=== PATIENT | female | born 2000 | race Caucasian/White ===

== ENCOUNTER 2019-07-26 14:30 | Outpatient (CLI) | payer BC, OTHER ==
[2019-07-26 15:46] LABS: Appearance,Urine Clear (Clear); Bacteria,Urine Rare /hpf; Bilirubin,Urine Negative (Negative); Blood,Urine Negative (Negative); Color,Urine Yellow; Glucose,Urine (UA) Negative (Negative); Hyaline Casts,Urine 1 /lpf (0-2); Ketones,Urine Negative (Negative); Leukocyte Esterase,Urine Large (Negative); Mucus,Urine Occasional /hpf; Nitrite,Urine Negative (Negative); PH, Urine 6.5 (5.0-8.0); Protein,Urine Negative (Negative); RBC,Urine 3 /hpf (0-5); Specific Gravity,Urine 1.016 (1.001-1.035); Squamous Epithelial Cell,Urine 6 /hpf (0-4); Urobilinogen,Urine <2.0 mg/dL (<2.0); WBC,Urine 2 /hpf (0-5)
[2019-07-26 16:07] VITALS: BP 127/62; PULSE 86; RESP 18; TEMP 97
--- NOTE | 2019-07-26 17:03 | US ---
EXAMINATION TYPE: US OB limited DATE OF EXAM: 07/26/2019 COMPARISON: NONE CLINICAL HISTORY: Rule out placenta previa. Vaginal spotting yesterday; decreased movement; G1P 0 EXAM PERFORMED: Transabdominal (TA) GESTATIONAL AGE / DATING Physician Established: (22 weeks/6 days) EDC: 11/23/2019 No growth performed on today?s study per ordering physician SURVEY PLACENTA: Posterior PREVIA: No Previa; 2.2cm distance from placental end to internal OS at exam's beginning Ultrasound evidence of abruption? no PASHA: 12.7 cm Normal Ultrasound evidence of premature rupture of membranes? no CERVICAL LENGTH (transabdominal: norm > 3.0cm): 3.2 cm PRESENTATION: cephalic HEART RATE: 147 bpm RHYTHM: Normal Tech findings provided to ELAINE Payton, at exam's end. JBjorn IMPRESSION: Normal amniotic fluid. No evidence of placenta previa. No evidence of placenta abruption .
--- NOTE | 2019-07-26 23:09 | P.MSEPDOC ---
Presenting Problems - Arrival Data Date of Arrival on Unit: 07/26/19 Time of Arrival on Unit: 14:08 Mode of Transport: Portable - Complaint OB-Reason for Admission/Chief Complaint: Vaginal Bleeding Comment: Pt states she noticed blood when urinating at around 8 AM today in the. toilet. Was unable to describe actual amount of blood. Pt denies any current bleeding at this time. Medical History - Information : 1 Para: 0 Term: 0 : 0 Abortions: Spontaneous or Elective: 0 Number of Living Children: 0 - Gestational Age Gestational Age by ESTUARDO (wks/days): 22 Weeks and 6 Days Review of Systems - Review of Systems Constitutional: No problems Breast: No problems ENT: No problems Cardiovascular: No problems Respiratory: No problems Gastrointestinal: No problems Genitourinary: No problems Musculoskeletal: No problems Neurological: No problems Skin: No problems Vital Signs - Temperature Temperature: 97.0 F Temperature Source: Temporal Artery Scan - Pulse Brachial Pulse Rate: 86 Pulse Assessment Method: Pulse Oximetry - Respirations Respiratory Rate: 18 Oxygen Delivery Method: Room Air O2 Sat by Pulse Oximetry: 98 - Blood Pressure Right Arm Blood Pressure: 127/62 Blood Pressure Mean: 83 Blood Pressure Source: Automatic Cuff Medical Screen Scoring (Pre) - Cervical Exam Dilation: Exam Deferred Effacement: Exam Deferred Membranes: Intact - Uterine Contractions Frequency: N/A Duration: N/A Intensity: N/A - Maternal Vital Signs Maternal Temperature: N/A Maternal Blood Pressure: N/A Signs of Preeclampsia: N/A Maternal Respirations: N/A - Maternal Trauma Maternal Trauma: N/A - Assessment - Baby A Baseline FHR: 147 Heart Rate - NICHD Category: Category I (Normal) = 0 Position: N/A Station: N/A - Total Score - Baby A Total Score - Baby A: 0 - Total Score - Baby B Total Score - Baby B: 0 - Total Score - Baby C Total Score - Baby C: 0 - Level of Risk - Baby A Level of Risk - Baby A: Low (0-5) - Level of Risk - Baby B Level of Risk - Baby B: Low (0-5) - Level of Risk - Baby C Level of Risk - Baby C: Low (0-5) Physician Notification (Pre) - Physician Notified Physician Notified Date: 07/26/19 Physician Notified Time: 15:08 Physician/Practitioner Notifed:: Dr. Raad Bartlett Order Received: Yes (Obtain ultrasound and UA) - Notification Comment Comment: Notified physician that pt states she noticed blood when urinating at around 8 AM today in the toilet. Was unable to describe actual amount of blood. Pt denies any current bleeding at this time. Physician Notification (Post) - Physician Notified Physician Notified Date: 07/26/19 Physician Notified Time: 16:00 Physician/Practitioner Notified:: Dr. Raad Bartlett Order Received: Yes - Notification Comment Comment: Notified of ultrasound results and UA results. Orders received to D/C home if pt has closed cervix. Disposition - Disposition OB Disposition: Discharge to home Discharge Date: 07/26/19 Discharge Time: 16:08 I agree with the RN Medical Screening Exam: Yes Risk & Benefit of care provided described in d/c instruction: Yes Diagnosis: SPOTTING COMPLICATING , SECOND TRIMESTER (Patient presents for evaluation of spotting second trimester. care is not with a physician associated with this hospital. Complete ultrasound was done which is normal. Cervix is closed patient's having no significant bleeding. heart tones are auscultated normal. Patient was given strict instructions to follow- up with her primary [employer] this evening or tomorrow. We advised her although she is always welcome at this institution be best if she went to her her physician had admitting privileges and knows her the best.)
== END 2019-07-26 16:15 | disposition home or self-care (01) ==
LOC: FBPOP 14:30
PROVIDERS: ATTEND Obstetrics & Gynecology
DX: O26.852 Spotting complicating pregnancy, second trimester (principal); Z3A.22 22 weeks gestation of pregnancy
CPT/HCPCS: 76815; 81001; 99213

== ENCOUNTER 2020-07-08 17:44 | Emergency (ER) | payer OTHER ==
[2020-07-08 17:50] VITALS: BP 115/73; PULSE 73; RESP 16; TEMP 98.3
[2020-07-08] MEDS ORDERED: ACETAMINOPHEN TAB 325 MG TAB PO STA (18:19)
--- NOTE | 2020-07-08 18:58 | XR ---
EXAMINATION TYPE: XR hand complete RT DATE OF EXAM: 07/08/2020 COMPARISON: NONE HISTORY: Pain TECHNIQUE: 3 views FINDINGS: Metacarpals appear intact. I see no fracture nor dislocation. Joint spaces are normal. IMPRESSION: Negative right hand exam.
--- NOTE | 2020-07-08 19:25 | ED ---
General Adult HPI - General Chief complaint: Wound/Laceration Stated complaint: Glass in hand Time Seen by Provider: 07/08/20 18:16 Source: patient, RN notes reviewed, old records reviewed Mode of arrival: ambulatory Limitations: no limitations - History of Present Illness Initial comments: 19-year-old female patient presents ED for evaluation of laceration to the lateral aspect of the first metacarpal joint. Patient reports that she was cleaning dishes when the dish broke and a piece of glass cut her. She states it was only one piece of glass she denies any chance of any foreign body. States the tetanus is up-to-date. Does reports that she feels she has some altered range of motion of the second digit of her left hand denies any other complaints. Systemic: Pt denies fatigue, fever/chills, rash. Pt denies weakness, night sweats, weight loss. Neuro: Pt denies headache, visual disturbances, syncope or pre-syncope. HEENT: Pt denies ocular discharge or irritation, otalgia, rhinorrhea, pharyngitis or notable lymphadenopathy. Cardiopulmonary: Pt denies chest pain, SOB, heart palpitations, dyspnea on exertion. Abdominal/GI: Pt denies abdominal pain, n/v/d. : Pt denies dysuria, burning w/ urination, frequency/urgency. Denies new onset urinary or bowel incontinence. MSK: Pt denies myalgia, loss of strength. Neuro: Pt denies new onset weakness, paresthesias. - Related Data Home Medications Medication Instructions Recorded Confirmed Birthcontrol DIRECTED 11/17/14 01/05/15 Allergies Allergy/AdvReac Type Severity Reaction Status Date / Time No Known Allergies Allergy Verified 07/08/20 17:47 Review of Systems ROS Statement: Those systems with pertinent positive or pertinent negative responses have been documented in the HPI. ROS Other: All systems not noted in ROS Statement are negative. Past Medical History Past Medical History: No Reported History History of Any Multi-Drug Resistant Organisms: None Reported Past Surgical History: No Surgical Hx Reported Past Psychological History: No Psychological Hx Reported Smoking Status: Never smoker Past Alcohol Use History: Occasional Past Drug Use History: None Reported General Exam - General Exam Comments Initial Comments: Constitutional: NAD, AOX3, Pt has pleasant affect. HEENT: NC/AT, trachea midline, neck supple, no lymphadenopathy. External ears appear normal, without discharge. Mucous membranes moist. Eyes PERRLA, EOM intact. There is no scleral icterus. No pallor noted. Cardiopulmonary: RRR, no murmurs, rubs or gallops, no JVD noted. Lungs CTAB in anterior and posterior collins. No peripheral edema. Neuro: CN II-XII grossly intact. No nuchal rigidity. MSK: Less than 1 cm superficial laceration to the lateral aspect of the right MCP. No open laceration that requires closure. Patient flexion and first digit may be slightly reduced. Otherwise all other range of motion of all digits is intact area patient placed in a splint neurovascular intact before and after splint placement. Radial pulse +2. Sensation intact. Limitations: no limitations Course Vital Signs 07/08/20 17:47 Temperature 98.3 F Pulse Rate 73 Respiratory 16 Rate Blood Pressure 115/73 O2 Sat by Pulse 99 Oximetry Medical Decision Making - Medical Decision Making 18 year old female patient presents to ED for very superficial laceration with possible difficulties with range of motion/tendinous injury. Patient will signs are stable, afebrile. Physical exam displayed a very superficial laceration which I irrigated and placed a Band-Aid over. Plain film was negative for acute process. Patient is placed in a splint will discharge the patient with. Follow-up and return precautions. Case discussed with Dr. Palencia. Disposition Clinical Impression: Laceration Disposition: HOME SELF-CARE Condition: Stable Additional Instructions: Continue to wear splint, follow-up with orthopedic consult tomorrow. Follow up with PCP in 1-2 days. If you're unable to get into the orthopedic consult in the next day you may remove the splint to do wound care and then put it back on as I directed you. Is patient prescribed a controlled substance at d/c from ED?: No Referrals: Aide Juárez MD [Primary Care Provider] - 1-2 days Pro Vallejo DO [Doctor of Osteopathic Medicine] - 1-2 days
== END 2020-07-08 19:37 | disposition home or self-care (01) ==
LOC: EC 17:44
DX: S61.011A Laceration without foreign body of right thumb without damage to nail, initial encounter (principal); Z79.3 Long term (current) use of hormonal contraceptives; W25.XXXA Contact with sharp glass, initial encounter; Y93.G1 Activity, food preparation and clean up; Y92.009 Unspecified place in unspecified non-institutional (private) residence as the place of occurrence of the external cause
CPT/HCPCS: 99283

== ENCOUNTER 2023-01-23 22:30 | Outpatient (CLI) | payer OTHER ==
[2023-01-23 23:19] VITALS: BP 123/57; PULSE 86; RESP 16; TEMP 98.6
--- NOTE | 2023-01-28 12:45 | P.MSEPDOC ---
Presenting Problems - Arrival Data Date of Arrival on Unit: 01/23/23 Time of Arrival on Unit: 22:30 Mode of Transport: Ambulatory - Complaint OB-Reason for Admission/Chief Complaint: Pain Comment: Pt is a with ESTUARDO 05/01/23 here at 26.0 weeks of gestation with c/o. left-sided upper abdominal pain x2 weeks. Pt reports that she did have a bruise where. the pain presents but it has since gone away. Pt states that the pain feels tender/sore. in the muscle and rates it a 5-6/10 on a 0-10 scale. Pt denies any specific injury to. the abdomen. Medical History - Information : 2 Para: 1 Term: 1 : 0 Abortions: Spontaneous or Elective: 0 Number of Living Children: 1 - Gestational Age Gestational Age by ESTUARDO (wks/days): 26 Weeks and 0 Days Review of Systems - Review of Systems Constitutional: No problems Breast: No problems ENT: No problems Cardiovascular: No problems Respiratory: No problems Gastrointestinal: No problems Genitourinary: No problems Musculoskeletal: No problems Neurological: No problems Skin: No problems Vital Signs - Temperature Temperature: 98.6 F Temperature Source: Temporal Artery Scan - Pulse Pulse Oximetery Pulse Rate: 86 Pulse Assessment Method: Pulse Oximetry - Respirations Respiratory Rate: 16 Oxygen Delivery Method: Room Air O2 Sat by Pulse Oximetry: 98 - Blood Pressure Right Arm Blood Pressure: 123/57 Blood Pressure Mean: 79 Blood Pressure Source: Automatic Cuff Medical Screen Scoring - Assessment - Baby A Baseline FHR: 135 Heart Rate - NICHD Category: Category I (Normal) Physician Notification - Physician Notified Physician Notified Date: 01/23/23 Physician Notified Time: 23:03 Physician: Graciela Novoa - Notification Comment Comment: Dr. Novoa notified of pt's arrival to triage. Maternal and status. discussed including pain level and FHTs. Pt okay to D/C home with ed ucation that it is. okay to take Tylenol for discomfort. RN to discuss POC with pt. Maternal Triage Index - Maternal Triage Index Presenting for scheduled procedure w/no complaint: No - Stat/Priority 1 Stat Priority 1: No - Urgent/Priority 2 Urgent Priority 2: No - Prompt/Priority 3 Prompt Priority 3: No - Non-Urgent/Priority 4 Non-Urgent Priority 4: Yes Criteria Met for Priority 4: Pt is a with ESTUARDO 05/01/[birth year] here at 26.0 weeks of gestation with c/o. left-sided upper abdominal pain x2 weeks. Pt reports that she did have a bruise where. the pain presents but it has since gone away. Pt states that the pain feels tender/sore. in the muscle and rates it a 5-6/10 on a 0-10 scale. Pt denies any specific injury to. the abdomen. Disposition - Disposition OB Disposition: Discharge to home Discharge Date: 01/23/23 Discharge Time: 23:11 I agree with the RN Medical Screening Exam: Yes Case reviewed; plan agreed upon as documented in EMR&OBIX.: Yes Diagnosis: PAIN, UNSPECIFIED
== END 2023-01-23 23:11 ==
LOC: FBPOP 22:30
PROVIDERS: ATTEND Obstetrics & Gynecology
DX: O26.892 Other specified pregnancy related conditions, second trimester (principal); Z3A.26 26 weeks gestation of pregnancy; R10.12 Left upper quadrant pain
CPT/HCPCS: 99213